=== PATIENT | female | born 1985 | race Caucasian/White ===

== ENCOUNTER 2020-10-21 15:36 | Outpatient (REF) | payer OTHER, SELFPAY | END 2020-10-21 15:37 | disposition home or self-care (01) | LOC: HO.LAB 15:36 | PROVIDERS: Visit Provider Internal Medicine | DX: Z20.822 Contact with and (suspected) exposure to COVID-19 (principal) | CPT/HCPCS: C9803; U0003; U0005 ==

== ENCOUNTER 2022-05-25 11:00 | Outpatient (REF) | payer OTHER, SELFPAY ==
--- NOTE | ~2022-05-25 | XR_ITS ---
EXAMINATION: XR KNEE, RIGHT CLINICAL INFORMATION: Right knee pain. COMPARISON: None TECHNIQUE: Four views of the right knee. FINDINGS: No acute fracture or dislocation. No significant joint space narrowing or marginal osteophytes. No osseous erosion. No abnormal soft tissue calcification. Trace joint effusion. XR/XR knee RT 4V IMPRESSION: Trace joint effusion.
== END 2022-05-25 11:01 | disposition home or self-care (01) ==
LOC: HO.HMGCX 11:00
PROVIDERS: Visit Provider Physician Assistant
DX: M25.561 Pain in right knee (principal)
CPT/HCPCS: 73564

== ENCOUNTER 2022-05-25 11:26 | Outpatient (REF) | payer OTHER, SELFPAY ==
--- NOTE | ~2022-05-25 | US_ITS ---
EXAMINATION: US VENOUS ULTRASOUND WITH DOPPLER LOWER EXTREMITY, RIGHT CLINICAL INFORMATION: Pain COMPARISON: None TECHNIQUE: Ultrasound of the deep veins is performed from the hip to the calf with compression sonography and color and pulse Doppler assessment. Spectral analysis with color-flow imaging is performed. FINDINGS: There is normal venous compression and respiratory variation and augmented flow. The visualized common femoral vein, superficial femoral vein, profunda femoral vein, popliteal vein, and the trifurcation region shows no evidence of deep venous thrombosis. There is no significant popliteal fossa cyst. US/US venous duplex LE RT IMPRESSION: No DVT demonstrated in the right lower extremity.
== END 2022-05-25 11:27 | disposition home or self-care (01) ==
LOC: HO.HMGCX 11:26
PROVIDERS: Visit Provider Physician Assistant
DX: M79.661 Pain in right lower leg (principal)
CPT/HCPCS: 93971

== ENCOUNTER 2025-06-20 11:08 | Emergency (ER) | payer OTHER, SELFPAY ==
--- NOTE | ~2025-06-20 | CT_ITS ---
CLINICAL HISTORY: RLQ Abdominal Pain CT abdomen and pelvis with contrast Comparison: None available Findings: No consolidation at the lung bases. Ground-glass opacity in the right lower lobe measuring 5 mm, likely infectious/inflammatory. Left lower lobe nodules measure up to 4 mm, also likely infectious/inflammatory. Unremarkable gallbladder and bladder. Splenic granulomatosis. Duplex left kidney. No hydronephrosis or nephrolithiasis.. The kidneys enhance normally. Retroverted uterus. The other solid organs are unremarkable. No bowel wall thickening or dilation. A normal appendix is visualized measuring 6 mm, containing intraluminal air and without periappendiceal stranding. Normal vasculature. No lymphadenopathy. Right lower quadrant lymph nodes measure up to 6 mm in short axis. No ascites. No acute osseous abnormality. Impression: Normal appendix. No other acute findings to explain the patient's presentation with right lower quadrant pain. This document has been electronically signed by: Kenyetta Mixon MD on 06/20/2025 14:16:26
[2025-06-20 11:14] VITALS: BP 144/75; PULSE 100; RESP 18; TEMP 36.6; O2SAT 98; BMI 38.3
--- NOTE | 2025-06-20 11:15 | ED_ITS ---
HPI - Abdominal Pain General Chief Complaint: Abdominal Pain Stated Complaint: abdominal pain Time Seen by Provider: 06/20/25 11:27 History of Present Illness ED Provider: Connie Emerson NP HPI narrative: 39-year-old female who denies significant medical history presents to the ED with chief complaint of right-sided abdominal pain, ongoing for about 4 days. Patient reports that the pain initially began around the umbilicus, but as though gone down to the right lower quadrant of the abdomen, and suprapubically. However, she feels as though the pain is generalized throughout the abdomen. There has been some associated nausea, with no vomiting, diarrhea or constipation. No fever, chills, recent illnesses. She reports that there was more discomfort when there was direct pressure applied to the abdomen. Denies any urinary complaints including dysuria, hematuria, urgency or frequency. No chest pain or pressure, shortness of breath. Related Data Previous Rx's ?Medication ?Instructions ?Recorded doxycycline monohydrate 100 mg 100 mg PO BID 7 days #1 4 caps 06/20/25 capsule Allergies Allergy/AdvReac Type Severity Reaction Status Date / Time mushroom AdvReac Mild NAUSEA & Verified 06/20/25 11:16 VOMITING MUSHROOM Allergy Unknown stomach Uncoded 06/20/25 11:16 upset Review of Systems Review of Systems ROS is otherwise negative unless mentioned in HPI. [facility] Social History Social History Smoked in Last 30 Days: Yes Use of substances other than those prescribed or required for medical reasons: Yes Substance Use Type: Marijuana Advance Directives: No Advance Directives Information Provided: No Do you have a plan to hurt others: No Plan Patient : No Physical Exam ED Exam Exam: Nursing notes and vital signs reviewed. Constitutional: Well-appearing, NAD. Alert. Oriented X3. Eyes: EOMI. ENT: Pharynx normal. Neck: Normal inspection. Neck supple. CVS: Normal heart rate and rhythm. Pulses normal. Respiratory: No respiratory distress. Breath sounds normal. Abdomen: Soft, nondistended. Tenderness to palpation to the RLQ, suprapubic region. Skin: Skin warm and dry. Normal skin color. Extremities: No lower extremity edema. Neuro: Oriented X 3. No motor deficit. Vital Signs: Vital Signs - 24 hr 06/20/25 11:14 Temperature 98 F Pulse Rate 100 Respiratory Rate 18 Blood Pressure 144/75 H Pulse Oximetry 98 Oxygen Delivery Method Room Air BMI result Body Mass Index 38.3 Course Course Course Narrative: This is a Rapid Medical Examination (RME) performed by Jud Blair PA-C in triage. Full HPI, ROS, assessment and treatment plan per primary provider in the Main ED. Hx: 39 yo F here w/ RUQ abd pain rad to umbilicus x3 days. 5/10 pain. not worse w/ eating or BMs. no N/V/D. surgical hx includes c sxn. no other abd surgeries. Plan: labs, UA Medical Decision Making Medical Decision Making [facility] Narrative: Upon my initial assessment, she appears well. She has subjective, possibly objective tenderness to palpation over the right lower quadrant of the abdomen, as well as the periumbilical region and suprapubic regions. Tells me this has been ongoing for about 4 days, and that pain occurs when any pressure is applied to the area. Some nausea without vomiting. Plan for lab work, urinalysis, imaging, we will reassess after pain control, antiemetic. 3:00 PM-- Blood work without leukocytosis, LFTs are normal, lipase also normal. Urinalysis with small leukocytes, some red cells. Not overly indicative of a UTI. No indication for antibiotics at this time. I did note that on the CAT scan there is a ground-glass opacity in the right lower lobe measuring 5 mm. This could be developing pneumonia, and therefore I have prescribed the patient a course of doxycycline, as well as given the 1st dose in the ED. There is some right lower quadrant lymph nodes measuring up to 6 mm, which may be causing some abdominal discomfort as well. There was no acute intra-abdominal pathology however. She is tolerating p.o. upon my reassessment. This likely is an acute viral illness, versus musculoskeletal discomfort. More likely acute viral etiology though, could be related to pneumonia diagnosis in the right lower lobe/referred pain. Recommended [id number] Tylenol, ibuprofen use as needed. Given strict return precautions to the ED, for which she is agreeable. Differential Diagnosis Differential Diagnoses: The differential diagnosis associated with the presentation includes Appendicitis, bowel obstruction, colitis, gastroenteritis Admission/Observation Consideration of admission/observation: Escalation of care including admission/observation considered Not indicated Lab Data [facility] Lab Attestation statement: I reviewed the patient's lab results. Reassuring overall. 06/20/25 11:27 06/20/25 11:27 Labs: Lab Results 06/20/25 06/20/25 Range/Units 11:27 11:37 WBC 9.0 (4.8-10.8) X10*3/uL RBC 4.56 (4.20-5.50) X10*6/uL Hgb 13.1 (12.0-16.0) g/dl Hct 40.4 (37.0-47.0) % MCV 88.6 (80.0-98.0) fL MCH 28.7 (27.0-33.0) pg MCHC 32.4 (31.0-35.0) g/dl RDW 13.6 (11.0-16.0) % Plt Count 274 (160-400) X10*3/uL MPV 10.4 (9.4-12.3) fL Immature Gran % (Auto) 0.2 (0.0-0.4) % Neut % (Auto) 66.5 (45-73) % Lymph % (Auto) 23.8 (20-40) % Stafford % (Auto) 8.0 (2-11) % Eos % (Auto) 1.1 (0-4) % Baso % (Auto) 0.4 (0-2) % Lymph # (Auto) 2.1 (1.2-4.9) X10*3/uL Stafford # (Auto) 0.7 (0.1-1.2) X10*3/uL Eos # (Auto) 0.1 (0.0-0.4) X10*3/uL Baso # (Auto) 0.0 (0.0-0.2) X10*3/uL Abs Immat Gran (auto) 0.02 (0.00-0.03) X10*3/uL Absolute Neuts (auto) 5.9 (2.0-8.3) x10*3/uL Absolute Nucleated RBC 0.000 (0.0-0.012) X10*3/uL Nucleated RBC % (auto) 0.0 (0.0-0.2) /100WBC Sodium 142 (135-145) mmol/L Potassium 4.0 (3.3-5.1) mmol/L Chloride 112 H (96-108) mmol/L Carbon Dioxide 24 (22-29) mmol/L Anion Gap 10 L (12-20) BUN 19 H (9-16) mg/dL Creatinine 0.83 (0.5-1.4) mg/dL Estim Creat Clear Calc 94.9 Estimated GFR > 60 Random Glucose 100 (60-115) mg/dL Calcium 9.0 (8.4-10.2) mg/dL Magnesium 2.3 (1.6-2.6) mg/dL Total Bilirubin 0.6 (0.0-1.0) mg/dL Direct Bilirubin 0.2 (0.0-0.5) mg/dL AST 17 (5-31) U/L ALT 21 (0-31) U/L Alkaline Phosphatase 68 (39-117) U/L Total Protein 7.3 (6.5-8.0) g/dL Albumin 4.5 (3.5-5.0) g/dL Lipase 21 (8-78) U/L Beta HCG, Quant < 2 mIU/mL Urine Color Yellow Urine Appearance Clear Urine pH 5.0 (5.0-9.0) Ur Specific Holden 1.025 (1.005-1.025) Urine Protein Negative (Neg-Trace) mg/dL Urine Glucose (UA) Negative (Negative) mg/dL Urine Ketones Trace (Negative) mg/dL Urine Blood Small (1+) H (Negative) Urine Nitrite Negative (Negative) Ur Leukocyte Esterase Small (1+) H (Negative) Urine RBC 6-10 H (0-2) /HPF Urine WBC 6-10 H (0-5) /HPF Ur Squamous Epith Cells 11-20 (0-2) /HPF Urine Bacteria 4+ (None Seen) Hyaline Casts 0-2 (0-2) /LPF Independent Interpretation I performed an independent interpretation of an: CT Scan Interpretation: I have reviewed the patient's imaging and agree with the radiologist's findings. Radiology Impression Discussion of test interpretation with radiology: I have reviewed the radiologist's reading. Radiologist Impression: Impression: Normal appendix. No other acute findings to explain the patient's presentation with right lower quadrant pain. External Record Review External record reviewed: Outside ED record Prescription Management I considered prescription management with: Pain Medication OTC control only Social Determinants Patient?s care significantly limited by Social Determinants of Health including: Problems related to primary support group Medications Administered Discontinued Medications Generic Name Dose Route Start Last Admin Trade Name Dewey PRN Reason Stop Dose Admin Sodium Chloride 1,000 mls @ 999 mls/hr 06/20/25 11:40 06/20/25 11:53 Ns IV 06/20/25 12:40 999 mls/hr .Q1H1M ONE Administration Iohexol 100 ml 06/20/25 13:08 06/20/25 13:09 Iohexol 350 Mg/Ml 100 Ml Infus..Btl IV 06/20/25 13:09 85 ml ONCE ONE Administration Ketorolac Tromethamine 15 mg 06/20/25 11:40 06/20/25 11:57 Ketorolac Tromethamine 15 Mg/Ml Vial IVPUSH 06/20/25 11:41 15 mg ONCE ONE Administration Ondansetron HCl 4 mg 06/20/25 11:40 06/20/25 11:57 Ondansetron Hcl 4 Mg/2 Ml Vial IVPUSH 06/20/25 11:41 4 mg ONCE ONE Administration Discharge Plan Discharge Clinical Impression: Pneumonia, Abdominal pain Patient Disposition: Home, Self-Care Instructions: Abdominal Pain (ED), Pneumonia (ED) Additional Instructions: As we discussed, you were seen here today for evaluation of abdominal pain. Your lab work overall was very reassuring. Your urinalysis does not show evidence of infection at this time. The CT scan shows that you have some enlarged lymph nodes in the abdomen, specifically in the right lower quadrant. There is occurs usually responds to viral illnesses. Additionally, there was concern for a right lower lobe pneumonia. Therefore, I have placed you on oral antibiotics called doxycycline. Please take with a full course of antibiotics as prescribed. If you do not begin to feel better in the next 24-48 hours, it is important that you return to the ED for additional assessment. With any new, worsening complaints at any time, seek re-evaluation in the ED. Prescriptions: New doxycycline monohydrate 100 mg capsule 100 mg PO BID 7 Days Qty: 14 0RF Referrals: [facility] [Provider Group, Family Practice] Stand Alone Forms: Work/School Release Print Language: Maori
--- OUTSIDE RECORDS SUMMARY | 2025-06-20 11:33 | XMS_ITS ---
Author Name [facility] Organization Unknown Care Team Organization Name Specialty Phone Email Start Date End Da te [facility] Sandra Ramirez Primary Care 05/04/20222023
--- OUTSIDE RECORDS SUMMARY | 2025-06-20 11:33 | XMS_ITS | Clinical Summary ---
Author Organization [facility] [address] [facility] l[address] Address [address] [place] [address] Phone Care Team Providers Care Risk Control Manager Name Role Phone Yeison Parker MD Primary Care Provider [phone] Allergies No known active allergies Medications No known medications Surgical History Surgery Date Site/Laterality Comments SECTION PROCEDURE: [place] DELIVERY ONLY OTHER SURGICAL HISTORY PROCEDURE: HISTORICAL EAR SURGERY; COMMENT: tubes in park ears Medical History Medical History Date Comments Asthma DX:Asthma Depression DX:Depression; C OMMENT: sees a counsellor, was [place] prozac History of gestational diabe saroj mellitus, not currently DX:History of gestati onal diabetes mellitus, not currently HPV (human papilloma virus) infection DX:HPV (human papilloma virus) infection Family history of breast can cer in female 07/08/2014 DX:Family history of breast cancer in female Family History Medical History Relation Name Comments Breast cancer Aunt mat 3 aunts Uterine cancer Aunt mat Other: Other Brother liver failure, in 40s/50s Asthma Father Diabetes Father lung disease,th yroid,emphysema, Heart attack Father Asthma Mother Breast cancer Mother Hypertension Mother Breast cancer Other cousin mat 30s Cancer of Small Bowel Neg Hx Colon cancer Neg Hx Kidney cancer Neg Hx Ovarian cancer Neg Hx Pancreatic cancer Neg Hx Relation Name Status Comments Aunt mat Brother Father Mother Alive Other cousin mat Alive Sister Alive Social History Tobacco Use Types Packs/Day Years Used Date Smoking Tobacco: Some Days Cigarettes Smokeless Tobacco: Never Alcohol Use Standard Drinks/Week Comments No 0 (1 standard drink = 0.6 oz pur e alcohol) Comments Unknown Sex and Gender Information Value Date Recorded Sex Assigned at Not on file Legal Sex Female 6:28 PM EST Gender Identity Not on file Sexual Orientation Not on file Last Filed Vital Signs Vital Sign Reading Time Taken Comments Blood Pressure 119/77 11/27/2024 10:56 AM EDT Pulse 97 11/27/2024 10:56 AM EDT Temperature - - Respiratory Rate - - Oxygen Saturation - - Inhaled Oxygen Concentration - - Weight 93 kg (205 lb) 11/27/2024 10:56 AM EDT Height 156.2 cm (5' 1.5 ) 09/23/2021 11:42 AM ED T Body Mass Index 38.11 09/23/2021 11:42 AM EDT Plan of Treatment Health Maintenance Due Date Last Done Comments Hepatitis B Vaccines (1 of 3 - 19+ 3-dose series) 2005 HPV Vaccines (1 - 3-dose SCD M series) 2013 Pneumococcal Vaccine: Pediatrics (0 to 5 Years) and At-Risk Patients (6 to 49 Years) (2 of 2 - PCV) 01/25/2015 01/25/2014 HIV Screening 06/05/2022 Hepatitis C Screening 06/05/2022 Social Influencers of Health Screening 06/05/2022 DTaP,Tdap,and Td Vaccines (3 - Td or Tdap) 01/26/2024 01/25/2014, 03/22/2012 Depression Screening 06/27/2024 COVID-19 Vaccine (1 - 2024-2 6 season) 2025 Influenza Vaccine (#1) 2025 5, 03/15/2013 Cervical Cancer Screening: P ap Smear 08/25/2025 08/25/2022 RSV Immunization Adult Patients (1 - 1-dose 75+ series) 2061 HIB Vaccines Aged Out No longer eligi ble based on patient's age to complete this topic Hepatitis A Vaccines Aged Out No long er eligible based on patient's age to complete this topic IPV Vaccines Aged Out No longer eligi ble based on patient's age to complete this topic MMR Vaccines Aged Out No longer eligi ble based on patient's age to complete this topic Meningococcal ACWY Vaccine Aged Out N o longer eligible based on patient's age to complete this topic Meningococcal B Vaccine Aged Out No l onger eligible based on patient's age to complete this topic RSV Immunization Patients Under 20 months Aged Out No longer eligible b ased on patient's age to complete this topic Varicella Vaccines Aged Out No longer eligible based on patient's age to complete this topic Procedures Procedure Name Priority Date/Time Associated Diagnosis Comments PAP SMEAR Routine 08/25/2022 from Last 3 Months or Most Recently Relevant to Health Maintenance Results * Pap smear (08/25/2022) 08/25/2022 Narrative HISTORICAL TESTING LAB RESULTING AGENCY - 08/31/2022 3:50 PM EST [id number] THINPREP PAP, IMAGED: NEGATIVE FOR SQUAMOUS INTRAEPITHELIAL LESION AND MALIGNANCY . SHIFT IN MICHELLE, SUGGESTIVE OF BACTERIAL VAGINOSIS. JAMEE DAVIS , REESE(ASCP) (CASE ELECTRONICALLY SIGNED 08 31 2022) RESULT OF APTIMA HIGH RISK HPV ASSAY: HIGH RISK HPV: NEGATIVE (SEROTYPES 16,18,31,33,35,39,45,51,52,56,58,59,66,68) COMPLETED ON 2022-08-27 ADEQUACY: SATISFACTORY ENDOCERVICAL/TRANSFORMATION ZONE COMPONENT PRESENT. SOURCE: THINPREP PAP HPV ANY DX: REFLEX 16 AND 18, CERVICAL, IMAGED CLINICAL INFORMATION: HPV ANY DIAGNOSIS. PAP HX NEG, NO LMP RECORDED [Z12.4, Z01.419] Jasmyn Lerma CNM LAB CYTOLOGY ORDERABLES Final Result HISTORICAL TESTING LAB RESULTING AGENCY from Last 3 Months or Most Recently Relevant to Health Maintenance Insurance [facility] Care Teams Risk Control Manager Relationship Specialty Start Date End Date Yeison Parker MD [address] [place] [address] PCP - General Internal Medicine 09/23/14
[2025-06-20 11:35] LABS: MANUAL DIFF FLAG NO
[2025-06-20 11:36] LABS: Hematocrit 40.4 % (37.0-47.0); Hemoglobin 13.1 g/dl (12.0-16.0); Imm Gran Abs Auto 0.02 X10*3/uL (0.00-0.03); Imm Gran Pct Auto 0.2 % (0.0-0.4); Lymphocytes Absolute Auto 2.1 X10*3/uL (1.2-4.9); Mean Corpuscular HGB Conc 32.4 g/dl (31.0-35.0); Mean Corpuscular Hemoglobin 28.7 pg (27.0-33.0); Mean Corpuscular Volume 88.6 fL (80.0-98.0); NRBC Abs Auto 0.000 X10*3/uL (0.0-0.012); NRBC Pct Auto 0.0 /100WBC (0.0-0.2); Platelet Count 274 X10*3/uL (160-400); Red Blood Count 4.56 X10*6/uL (4.20-5.50); White Blood Count 9.0 X10*3/uL (4.8-10.8)
[2025-06-20 11:42] LABS: Appearance Urine Clear; Glucose Urine UA Negative (Negative); PH 5.0 (5.0-9.0); Specific Gravity - Urine 1.025 (1.005-1.025); UMIC TRIGGER UACC YES
[2025-06-20 11:48] LABS: UACC Culture Trigger YES
[2025-06-20 12:00] LABS: Alanine Aminotransferase 21 U/L (0-31); Albumin Level 4.5 g/dL (3.5-5.0); Alkaline Phosphatase 68 U/L (39-117); Anion Gap 10 (12-20); Aspartate Amino Transferase 17 U/L (5-31); Blood Urea Nitrogen 19 mg/dL (9-16); Calcium 9.0 mg/dL (8.4-10.2); Carbon Dioxide 24 mmol/L (22-29); Chloride 112 mmol/L (96-108); Creatinine Clr Calc Pharmacy 94.9; Estimated Glomerular Filt Rate > 60; Lipase 21 U/L (8-78); Magnesium 2.3 mg/dL (1.6-2.6); Potassium 4.0 mmol/L (3.3-5.1); Sodium 142 mmol/L (135-145); Total Protein 7.3 g/dL (6.5-8.0)
--- NOTE | 2025-06-20 12:10 | PC.NURSE ---
patient a&ox3, rr equal/non labored, c/o rlq abd pain 08/06, iv inserted, labs drawn, pt medicated per order, call rojas within reach, plan of care ongoing
[2025-06-20] MEDS: iohexoL 350 MG/ML 100 ML INFUS..BTL IV (13:09)
[2025-06-20 16:04] VITALS: BP 144/75; PULSE 100; RESP 18; TEMP 36.6; O2SAT 98
== END 2025-06-20 16:04 | disposition home or self-care (01) ==
PROVIDERS: Nurse Practitioner; Physician Assistant Medical; Emergency Provider Emergency Medicine
DX: J18.9 Pneumonia, unspecified organism (principal); R10.21 Pelvic and perineal pain right side; R10.31 Right lower quadrant pain; R11.0 Nausea; Z79.899 Other long term (current) drug therapy
CPT/HCPCS: 36415; 74177; 80053; 81001; 82248; 83690; 83735; 84702; 85025; 87086; 96361; 96374; 96375; 99285; J1885; J2405; Q9967

== ENCOUNTER → 2025-06-20 11:40 | Outpatient (BNV) | payer OTHER, SELFPAY | PROVIDERS: Emergency Provider Emergency Medicine; Visit Provider Radiology Diagnostic Radiology | DX: R10.31 Right lower quadrant pain (principal) | CPT/HCPCS: 74177 ==